=== PATIENT | female | born 1960 | race Caucasian/White ===

== ENCOUNTER 2020-12-14 08:48 | Outpatient (CLI) | payer BC, SELFPAY ==
--- NOTE | ~2020-12-14 | MM_ITS ---
EXAMINATION: MM screening bebeto BI w leandro HISTORY: Screening TECHNIQUE: Craniocaudal and mediolateral oblique 3-D tomosynthesis images were obtained and synthetic 2-D images were generated. CAD analysis was submitted and interpreted. COMPARISON: Comparison to multiple prior studies sequentially, with oldest reviewed study dated 11/2013. BREAST PARENCHYMAL COMPOSITION: There are scattered areas of fibroglandular density. FINDINGS: There is no evidence of suspicious mass, calcification, or architectural distortion to sugg est malignancy in either breast. There has been no suspicious interval change. IMPRESSION: 1. No mammographic evidence of malignancy. 2. Recommend routine screening mammography in one year. BI-RADS Category 1: Negative Reviewed, dictated and finalized at location A. EPSY PHYSICIAN
== END 2020-12-14 08:49 | disposition home or self-care (01) ==
LOC: ANHIMG 08:54
PROVIDERS: PCP Nurse Practitioner Adult Health; Visit Provider Obstetrics & Gynecology Gynecology
DX: Z12.31 Encounter for screening mammogram for malignant neoplasm of breast (principal)
CPT/HCPCS: 77063; 77067

== ENCOUNTER → 2021-11-03 02:50 | Outpatient (CLI) | payer BC, SELFPAY ==
[2021-11-04 14:36] LABS: SARS-CoV-2 RNA PCR Negative
== END ==
PROVIDERS: PCP Nurse Practitioner Adult Health; Visit Provider Nurse Practitioner Adult Health
DX: R05.9 Cough, unspecified (principal); Z20.822 Contact with and (suspected) exposure to COVID-19
CPT/HCPCS: C9803; U0003; U0005

== ENCOUNTER 2022-07-25 08:14 | Outpatient (CLI) | payer BC, SELFPAY ==
--- NOTE | ~2022-07-25 | DEXA_ITS ---
Bone Density Report Name: BERTA HARGROVE Age: 61 Sex: Female Ethnicity: White Date of : 1960 Indication: postmenopausal; screening for osteoporosis; Referring Provider: REYNA BUSTOS Study: Bone densitometry was performed. Exam Date: July 25, 2022 Accession number: [id number] Bone Density: Region BMD T-score Z-score Classification AP Spine(L1-L4) 1.161 1.0 2.6 Normal Femoral Neck (Left) 0.786 -0.6 0.8 Normal Total Hip (Left) 0.955 0.1 1.1 Normal Femoral Neck (Right) 0.810 -0.4 1.0 Normal Total Hip (Right) 1.031 0.7 1.8 Normal Total Hip Mean 0.993 0.4 1.5 Normal World Health Organization criteria for BMD impression classify patients as: Normal (T-score at or above -1.0), Osteopenia (T-score between -1.0 and -2.5), or Osteoporosis (T-score at or below -2.5). 10-year Fracture Risk: FRAX not reported because: All T-scores for Spine Total, Hip Total, Femoral Neck at or above -1.0 Previous Exams: Region Exam Age BMD T-score BMD Change BMD Change Date g/cm2 vs Baseline vs Previous AP Spine (L1-L4) 07/25/2022 61 1.161 1.0 0.048 (4.3%)* 0.007 (0.6%) 03/14/2019 58 1.154 1.0 0.041 (3.7%)* 0.041 (3.7%)* 04/22/2015 54 1.113 0.6 Total Hip(Left) 07/25/2022 61 0.955 0.1 -0.016 (-1.6%) -0.018 (-1.9%) 03/14/2019 58 0.973 0.3 0.002 (0.3%) 0.002 (0.3%) 04/22/2015 54 0.970 0.2 Total Hip(Right) 07/25/2022 61 1.031 0.7 0.022 (2.1%) -0.001 (-0.1%) 03/14/2019 58 1.031 0.7 0.023 (2.2%) 0.023 (2.2%) 04/22/2015 54 1.009 0.5 *Denotes significance at 95% confidence level, LSC for AP Spine = 0.022 g/cm2, LSC for Total Hip = 0.027 g/cm2 Clinical Information Provided by Patient: Has used the following medications: Vitamin D, Calcium Patient maximum height was 63 Menopause Age: 53 No regular weight bearing exercise Drinks caffeinated beverages Onset of menses at age 12 Number of children 3 Impression: The patient has normal bone mass. No significant bone loss was observed. Discussion: BONE DENSITY IS ABOVE THE MINIMUM DESIRABLE LEVEL AT ALL SKELETAL SITES TESTED. This patient?s bone mineral density is above the minimum desirable level (T-score -1.0 or better) at all sites measured. The patient should follow a healthful lifestyle (good nutrition with adequate calcium and vitamin D, and appropriate weight-bearing exercise). Follow-Up: Consider repeating th
--- NOTE | ~2022-07-25 | MM_ITS ---
EXAMINATION: MM screening bebeto BI w leandro HISTORY: Screening mammogram TECHNIQUE: Craniocaudal and mediolateral oblique 3-D tomosynthesis images were obtained and synthetic 2-D images were generated. CAD analysis was submitted and interpreted. COMPARISON: December 14, 2020, March 14, 2019, November 23, 2017 bilateral screening mammogram examinati ons BREAST PARENCHYMAL COMPOSITION: There are scattered areas of fibroglandular density. FINDINGS: There is no evidence of suspicious mass, calcification, or architectural distortion to sugg est malignancy in either breast. There has been no suspicious interval change. IMPRESSION: 1. No mammographic evidence of malignancy. 2. Recommend routine screening mammography in one year. BI-RADS Category 1: Negative Reviewed, dictated and finalized at location A.
== END 2022-07-25 08:15 | disposition home or self-care (01) ==
LOC: ANHIMG 08:15
PROVIDERS: PCP Nurse Practitioner Adult Health; Visit Provider Obstetrics & Gynecology Gynecology
DX: Z12.31 Encounter for screening mammogram for malignant neoplasm of breast (principal); Z78.0 Asymptomatic menopausal state
CPT/HCPCS: 77063; 77067; 77080

== ENCOUNTER → 2023-05-29 10:07 | Outpatient (CLI) | payer BC, SELFPAY ==
--- NOTE | ~2023-05-29 | US_ITS ---
Pelvic ultrasound. Clinical History: Postmenopausal bleeding Technique: Realtime transabdominal and transvaginal scanning of the pelvis was performed. Color flow Doppler and Doppler spectral analysis were performed. Findings: The uterus is anteverted. The endometrial stripe is heterogeneous, and has a thickness of 15 mm. No focal mass is identified. Neither ovary seen. No other adnexal mass seen. There is no evidence of free fluid in the cul de sac. Impression: Thickened, heterogeneous endometrial stripe. Diagnostic considerations include endometrial hyperplasi a versus endometrial neoplasm. Further evaluation, including probable endometrial biopsy, recommended . Reviewed, dictated and finalized at location M. Impression: Thickened, heterogeneous endometrial stripe. Diagnostic considerations include endometrial hyperplasia versus endometrial neoplasm. Further evaluation, includ ing probable endometrial biopsy, recommended.
== END ==
PROVIDERS: PCP Obstetrics & Gynecology Gynecology; Visit Provider Obstetrics & Gynecology Gynecology
DX: N95.0 Postmenopausal bleeding (principal)
CPT/HCPCS: 76830

== ENCOUNTER 2023-07-24 02:11 | Day surgery (SDC) | payer BC, SELFPAY ==
[2023-07-17 11:32] VITALS: BMI 34.5
--- NOTE | 2023-07-17 11:39 | PC.NURSE ---
Report to the Outpatient Waiting Room, entrance under the green pavilion located off [facility], at time 0815 on date 07/24/23. Planned Procedure Time: 1015. Time changes happen often and if your time is changed the preop area will call you the afternoon before. - You and your visitor will be asked to self-screen and do not enter if you have any COVID symptoms. - A mask is optional within the hospital at this time. Patients may have clear liquids (water, carbonated beverages, clear teas, apple juice) until 3 hours prior to surgery with a maximum of 20 ounces. - No food from midnight until time of surgery Take the following medications with a SIP of water the morning of surgery: BUSPIRONE, LORAZEPAM DO NOT STOP ANY OF YOUR OTHER PRESCRIPTION MEDICATIONS PRIOR TO SURGERY ?EXCEPT THE FOLLOWING Medications to discontinue per physician: VITAMINS/SUPPLEMENTS Date to take last dose: 07/20/23 Please no make-up, nail wolof, hairspray, perfume, deodorant, or body powder the day of surgery. No jewelry (including any body piercings) or valuables the day of surgery, leave them at home. Please take a shower or bath the night before, or the morning of, surgery with an antibacterial soap. Wear comfortable, loose fitting clothing. - Jewelry must be removed prior to entering the operating room. Rings and piercings that are not removed may be cut off. - The hospital will not accept responsibility for valuables. - Please leave all valuables, including medications, at home the day of surgery. If you are going home after surgery, a licensed cab driver must drive you home. - NO public transportation without another adult if you receive anesthesia. - We recommend that an adult stay with you for 24 hours following discharge. - We also recommend that you do not drive, make important decision, drink alcoholic beverages, or take any drugs that were not prescribed by your health care provider for at least 24 hours after your discharge time. Follow any additional instructions given to you from your surgeon. If you or anyone in your household have experienced Covid symptoms in the past week, please notify your surgeon or the nurse liaison at the phone number below for possible testing. Telephone instructions given to PT - BERTA HARGROVE and asked if any additional questions and then verbalized understanding. Patient advised to call surgeon office or pre surgery nurse liaison [phone] if any additional questions.
--- NOTE | 2023-07-24 07:32 | WPDHPUPDATE1 ---
History and Physical Update Update Date/Time: 07/24/23 07:32 History and Physical has been reviewed, including an updated exam of the patient. There are NO changes in the patient's condition. Risks, benefits, and alternatives have been discussed and questions answered. Patient agrees to proceed with procedure.
--- NOTE | 2023-07-24 07:32 | PM.HPGS ---
History of Present Illness History of Present Illness Consent: Risks, benefits, and alternatives have been discussed and questions answered. Patient agrees to proceed with procedure. Chief complaint: postmenopausal bleeding Narrative: Jaci Garcia is a 62 year old female with an episode of vaginal bleeding. On exam she had 2 polyps at the cervix which were removed and found to be benign. Was recommended to also perform an ultrasound to verify the endometrium was thin. Ultrasound revealed the endometrium to be thickened at 15mm. It was recommended then to proceed with D&C hysteroscopy. Risks of infection, bleeding, perforation, and possible pathology are reviewed. Patient voices understanding and agrees to proceed. Review of Systems Review of Systems: not repeated day of surgery; patient states no changes in status PMFSH Past Medical History Medical History (Updated 07/24/23 @ 07:36 by Flower Caldera MD) Anxiety Hypercholesterolemia (normal spontaneous vaginal delivery) X1 Also history forceps assisted vaginal delivery x1 Surgical History Surgical History (Updated 07/24/23 @ 07:35 by Flower Caldera MD) History of X1 History of D&C 1982 for spontaneous Social History Social History Smoking status: Never smoker Alcohol intake: current Alcohol use details: VERY RARE Substance use: never Substance use type: does not use Living arrangements: with family Spiritual care concerns: No Meds Home Medications and Allergies Home Medications Medication Instructions Recorded Confirmed Type buspirone 15 mg tablet 15 mg PO BID 07/17/23 07/17/23 History calcium carbonate 600 mg calcium 600 mg PO DAILY 07/17/23 07/17/23 History (1,500 mg) tablet (Calcium) ergocalciferol (vitamin D2) 1,250 1,250 mcg PO WEEKLY 07/17/23 07/17/23 History mcg (50,000 unit) capsule (Vitamin D2) lansoprazole 30 mg capsule,delayed 30 mg PO DAILY 07/17/23 07/17/23 History release loratadine 10 mg tablet (Claritin) 10 mg PO DAILY 07/17/23 07/17/23 History lorazepam 0.5 mg tablet 0.5 mg PO TID PRN Anxiety 07/17/23 07/17/23 History lutein extract 15 mg-zeaxanthin 1 cap PO QMWFSA 07/17/23 07/17/23 History extract 0.7 mg capsule multivitamin 1 tablet PO DAILY 07/17/23 07/17/23 History rosuvastatin 20 mg tablet 20 mg PO DAILY 07/17/23 07/17/23 History Allergies Allergy/AdvReac Type Severity Reaction Status Date / Time Penicillins Allergy Mild RASH Unverified 07/17/23 11:32 Exam Const: General: healthy appearing and alert Orientation/consciousness: patient oriented x3 Resp: Effort & Inspection: normal respiratory effort GI: GI Palp: Yes Soft to palpation, No Tenderness to palpation present (GI) and No Palpable mass present : External Female Exam: normal external appearance Speculum Exam - Vagina: normal appearance of the vagina and normal vaginal discharge Speculum Exam - Cervix: normal appearance of the cervix Bimanual exam- vagina & uterus: uterine size normal and consistency normal Bimanual Exam- Adnexa, other: normal adnexae and No adnexal tenderness Neuro: General: patient oriented x3 Assessment and Plan Assessment and plan (1) Post-menopausal bleeding: Code(s): N95.0 - Postmenopausal bleeding Status: Acute Assessment and Plan: Plan to proceed with D&C hysteroscopy
[2023-07-24 08:30] VITALS: BP 146/74; PULSE 76; RESP 16; TEMP 36.6; O2SAT 98
[2023-07-24] MEDS: LACTATED RINGERS 1,000 ML 30 ML IV CONT (08:56)
[2023-07-24] MEDS: ACETAMINOPHEN 500 MG TABLET 1000 MG PO (08:57)
--- NOTE | 2023-07-24 09:11 | WPDANESEPPF ---
Anes - Initial Pre Proc Eval Procedure: Operation Date: 07/24/23 10:15 Proposed Procedures p Hysteroscopy Dilation and Curettage - Flower Caldera MD Date/Time: 07/24/23 09:11 Surgeon: Flower Caldera MD Pre Op Diagnosis: postmenopausal bleeding Patient Data Age: 62 Gender: F Height: 1.6 m Weight: 89.7 kg Last Vital Signs Temp 36.6 C 07/24/23 08:30 Pulse 76 07/24/23 08:30 Resp 16 07/24/23 08:30 BP 146/74 H 07/24/23 08:30 Pulse Ox 98 07/24/23 08:30 O2 Del Method Room Air 07/24/23 08:30 Allergies Allergy/AdvReac Type Severity Reaction Status Date / Time Penicillins Allergy Mild RASH Unverified 07/24/23 09:05 Home Medications Medication Instructions Recorded Confirmed Type buspirone 15 mg tablet 15 mg PO BID 07/17/23 07/24/23 History calcium carbonate 600 mg calcium 600 mg PO DAILY 07/17/23 07/24/23 History (1,500 mg) tablet (Calcium) ergocalciferol (vitamin D2) 1,250 1,250 mcg PO WEEKLY 07/17/23 07/24/23 History mcg (50,000 unit) capsule (Vitamin D2) lansoprazole 30 mg capsule,delayed 30 mg PO DAILY 07/17/23 07/24/23 History release loratadine 10 mg tablet (Claritin) 10 mg PO DAILY 07/17/23 07/24/23 History lorazepam 0.5 mg tablet 0.5 mg PO TID PRN Anxiety 07/17/23 07/24/23 History lutein extract 15 mg-zeaxanthin 1 cap PO QMWFSA 07/17/23 07/24/23 History extract 0.7 mg capsule multivitamin 1 tablet PO DAILY 07/17/23 07/24/23 History rosuvastatin 20 mg tablet 20 mg PO DAILY 07/17/23 07/24/23 History lansoprazole 30 mg capsule,delayed 30 mg PO DAILY 07/24/23 07/24/23 History release Patient hx anesthesia problems: none Family hx anesthesia problems: none Results Review: All pre-operative results and documents have been reviewed as part of the pre-operative evaluation. [facility] Past Medical History Medical History (Updated 07/24/23 @ 09:11 by Vinh Sosa MD) Anxiety Hypercholesterolemia (normal spontaneous vaginal delivery) X1 Also history forceps assisted vaginal delivery x1 Obesity Snoring Surgical History Surgical History History of X1 History of D&C 1982 for spontaneous Social History Social History Smoking status: Never smoker Alcohol intake: current Alcohol use details: VERY RARE Substance use: never Substance use type: does not use Living arrangements: with family Spiritual care concerns: No Anes - Eval Final PreProcedure Day of Procedure 07/24/23 09:11 Patient weight: obese Heart: regular rate and rhythm Lungs: clear to auscultation Airway: Mallampati scale class III and special considerations poor opening Neurological: alert and oriented Last oral intake: >/= 8 hours ASA classification: III Emergent: no Anesthetic plan: proceed Anesthesia type and monitoring: general GIVS and standard monitoring Results Review: All pre-operative results and documents have been reviewed as part of the pre-operative evaluation. Informed Consent: The patient's anesthetic plan and its attendant risks and benefits were discussed with the patient/family/POA. Questions were solicited and answers provided to the satisfaction of the patient/family/POA.
--- NOTE | 2023-07-24 11:48 | W.PM.PROC2 ---
Procedure Note - Detailed Date of Procedure 07/24/23 Pre-op Diagnosis postmenopausal bleeding Post-op Diagnosis Same Procedure Performed D&C hysteroscopy polypectomy Surgeon Flower Caldera MD Anesthesia MAC Findings Uterus sounds to 8cm and there are 2 large polyps filling the entire cavity. Endometrium appears grossly atrophic. Description of Procedure The patient is taken to the operating room and placed under anesthesia in the dorsal lithotomy position. She was prepped and draped in the usual sterile fashion. [place] speculum was placed in the vagina and the cervix grasped on the anterior lip with a tenaculum. The uterus is sounded to 8cm and the diagnostic hysteroscope placed. Due to the large polyps, the medium Aveeta resection device is placed. Under direct visualization the polyps were removed in their entirety. The hysteroscope was removed and the sharp curette used to curette the endometrium until a good uterine cry was noted in all areas. Minimal material was obtained with curettage consistent with the atrophic appearance. All instruments were then removed. The patient is awakened from anesthesia and taken to recovery in stable condition. Sponge, needle, and instrument counts are correct per the OR staff Estimated Blood Loss 5 Drains No Packing No Pathology Yes (Endometrial shavings and curettings) Complications No immediate complications Condition Stable Disposition PACU
[2023-07-24 11:50] VITALS: BP 118/61; PULSE 90; RESP 16; O2SAT 96
--- NOTE | 2023-07-24 11:59 | SUR.PREOP ---
0930 PT INFORMED OF SURGERY TIME DELAY, DENIES NEEDS 1100 PT UPDATED ON SURGERY TIME DELAY, DENIES NEEDS
[2023-07-24 12:20] VITALS: BP 119/77; PULSE 78
[2023-07-24 12:50] VITALS: BP 115/64; PULSE 70
== END 2023-07-24 13:15 | disposition home or self-care (01) ==
PROVIDERS: PCP Family Medicine; Visit Provider Obstetrics & Gynecology Gynecology
PROC: 0U5B8ZZ Destruction of Endometrium, Via Natural or Artificial Opening Endoscopic (ICD-10-PCS; CPT 58563; principal; 2023-07-24 10:15)
DX: N95.0 Postmenopausal bleeding (principal); N84.0 Polyp of corpus uteri; E78.00 Pure hypercholesterolemia, unspecified; F41.9 Anxiety disorder, unspecified; E66.9 Obesity, unspecified; Z68.35 Body mass index [BMI] 35.0-35.9, adult
CPT/HCPCS: 58558; 88305; A9270; J2250; J2405; J2704; J3010; J7120

== ENCOUNTER 2024-01-16 07:57 | Outpatient (CLI) | payer BC, SELFPAY ==
--- NOTE | ~2024-01-16 | MM_ITS ---
EXAMINATION: MM screening bebeto BI w leandro HISTORY: Screening TECHNIQUE: Craniocaudal and mediolateral oblique 3-D tomosynthesis images were obtained and synthetic 2-D images were generated. CAD analysis was submitted and interpreted. COMPARISON: Comparison to multiple prior studies sequentially, with oldest reviewed study dated 07/31. BREAST PARENCHYMAL COMPOSITION: Not dense: There are scattered areas of fibroglandular density. FINDINGS: Developing focal asymmetries in the right breast, best seen on MLO view. The left breast is stable without evidence for malignancy. IMPRESSION: 1. Developing right breast asymmetries. 2. Additional mammographic views and possible breast ultrasound are recommended. BI-RADS Category 0: Incomplete: Needs additional imaging evaluation. Reviewed, dictated and finalized at location A. IMPRESSION: 1. Developing right breast asymmetries. 2. Additional mammographic views and possible breast ultrasound are recommended . BI-RADS Category 0: Incomplete: Needs additional imaging evaluation.
== END 2024-01-16 07:58 | disposition home or self-care (01) ==
PROVIDERS: PCP Family Medicine; Visit Provider Obstetrics & Gynecology Gynecology
DX: Z12.31 Encounter for screening mammogram for malignant neoplasm of breast (principal); R92.8 Other abnormal and inconclusive findings on diagnostic imaging of breast
CPT/HCPCS: 77063; 77067

== ENCOUNTER 2024-02-07 13:06 | Outpatient (CLI) | payer BC, SELFPAY ==
--- NOTE | ~2024-02-07 | MMUS_ITS ---
EXAMINATION: MM diagnostic bebeto RT w leandro, US breast RT complete HISTORY: Developing right breast asymmetries reported on 01/16/2024 screening mammogram TECHNIQUE: Additional 3-D tomosynthesis images of the right breast were performed and synthetic 2-D i mages were generated. Rolled medial craniocaudal and rolled lateral craniocaudal views. CAD analysis was submitted and interpreted. High resolution complete right breast ultrasound examination coronal 4 quadrants and subareolar area was performed. COMPARISON: 01/16/2024 bilateral screening mammogram No imaging studies prior to 01/16/2024 hour available from PACS at this time. FINDINGS: MAMMOGRAPHIC FINDINGS: Mildly nodular fibroglandular stroma of the right breast is noted. There is an approximately 4 mm circumscribed opacity in the lower central right breast at mid to post erior depth. (ML Tomosynthesis image 34/81). No suspicious mass of the right breast or architectural distortion is evident otherwise. ULTRASOUND: 7:00 5 cm from nipple: Parallel circumscribed approximately 3.2 x 4.5 x 5.4 mm lesion is noted, witho ut internal vascularity or posterior shadowing. 8:00 7 cm from nipple: Oval circumscribed 2.4 x 1.8 x 2.7 mm sonolucency, likely a small cyst IMPRESSION: 1. Probable benign findings 2. 6 month diagnostic right mammogram and limited right breast ultrasound follow-up are recommended BI-RADS category 3, probably benign findings. Reviewed, dictated and finalized at location A. IMPRESSION: 1. Probable benign findings 2. 6 month diagnostic right mammogram and limited right breast ultrasound follo w-up are recommended BI-RADS category 3, probably benign findings.
== END 2024-02-07 13:07 | disposition home or self-care (01) ==
LOC: ANHIMG 13:11
PROVIDERS: PCP Family Medicine; Visit Provider Obstetrics & Gynecology Gynecology
DX: R92.8 Other abnormal and inconclusive findings on diagnostic imaging of breast (principal)
CPT/HCPCS: 76641; 77061; 77065; G0279

== ENCOUNTER 2024-06-26 08:32 | Outpatient (CLI) | payer BC, SELFPAY ==
--- NOTE | ~2024-06-26 | US_ITS ---
EXAMINATION: US transvaginal INDICATION: Postmenopausal bleeding Comparison:05/29/2023 TECHNIQUE: Multiple endovaginal sonographic images of the pelvis performed. FINDINGS: The uterus measures 7.2 x 3 x 4.5 cm. The endometrial complex measures 5 mm. The ovaries are not visualized. There is no free fluid in the pelvis. There are no abnormal masses seen on either side. IMPRESSION: 1. Unremarkable pelvic ultrasound. Reviewed, dictated and finalized at location B.
== END 2024-06-26 08:33 ==
LOC: MICIMG 08:34
PROVIDERS: PCP Obstetrics & Gynecology Gynecology; Visit Provider Obstetrics & Gynecology Gynecology
DX: N95.0 Postmenopausal bleeding (principal)
CPT/HCPCS: 76830

== ENCOUNTER 2024-08-12 10:19 | Outpatient (CLI) | payer BC, SELFPAY ==
--- NOTE | ~2024-08-12 | MMUS_ITS ---
EXAMINATION: US breast RT limited, MM diagnostic bebeto RT w leandro HISTORY: Follow-up right breast mass TECHNIQUE: Additional 3-D tomosynthesis images of the right breast were performed and synthetic 2-D i mages were generated. CAD analysis was submitted and interpreted. High resolution Limited right breas t ultrasound was performed. COMPARISON: Comparison to multiple prior studies sequentially, with oldest reviewed study dated 03/14. BREAST PARENCHYMAL COMPOSITION: Not dense: There are scattered areas of fibroglandular density. FINDINGS: MAMMOGRAPHIC FINDINGS: There are no suspicious masses, calcifications or architectural distortion to suggest malignancy. ULTRASOUND: Limited right breast ultrasound: There is a stable 6 mm oval hypoechoic mass with echogenic hilum bes t visualized on video sweep images, most compatible with benign intramammary lymph node. IMPRESSION: 1. No evidence for malignancy in the right breast. Benign finding. 2. Routine yearly screening mammogram and regular clinical breast examination are recommended. BI-RADS Category 2: Benign finding(s). Reviewed, dictated and finalized at location B. IMPRESSION: 1. No evidence for malignancy in the right breast. Benign finding. 2. Routine yearly screening mammogram and regular clinical breast examination a re recommended. BI-RADS Category 2: Benign finding(s).
== END 2024-08-12 10:20 | disposition home or self-care (01) ==
LOC: ANHIMG 10:21
PROVIDERS: PCP Obstetrics & Gynecology Gynecology; Visit Provider Obstetrics & Gynecology Gynecology
DX: R92.8 Other abnormal and inconclusive findings on diagnostic imaging of breast (principal)
CPT/HCPCS: 76642; 77061; 77065; G0279

== ENCOUNTER 2025-09-16 02:08 | Day surgery (SDC) | payer BC, SELFPAY ==
[2025-09-01 14:01] VITALS: BMI 34.5
--- OUTSIDE RECORDS SUMMARY | 2025-09-16 03:20 | XMS_ITS | Clinical Summary ---
Author Organization [facility] [employer] Address [address] [address] Care Team Providers Care Filer And Sander Name Role Phone Unavailable Primary Care Provider Unavailabl e Source Comments [facility],non-owned Affiliates and Associated Physician Practices is amultiple site organization consisting of ambulatory clinics and hospital sitesin [place], [place], [place]. This disclosure is being madepursuant to the Care Everywhere program and may not contain all information available regarding this patient. Last updated 18.[facility] Allergies Active Allergy Reactions Criticality Noted Date Comments Penicillins Unknown 09/09/2020 Immunizations Immunization Administration Dates Next Due INFLUENZA VACCINE, QUADR. (F LUZONE; FLULAVAL; FLUARIX; AFLURIA QUADRIVALENT; 6MO+), 0.5 ML (IIV4) 09/09/2020 Social History Tobacco Use Types Packs/Day Years Used Date Smoking Tobacco: Never Assessed Comments Unknown Sex and Gender Information Value Date Recorded Sex Assigned at Not on file Legal Sex Female 11:27 AM [employer] Gender Identity Not on file Sexual Orientation Not on file Plan of Treatment Health Maintenance Due Date Last Done Comments COLOGUARD (AGES 45-75) - COL ON CA SCREENING 1960 COLON MONITORING 1960 COLONOSCOPY - COLON CA SCREENING 1960 CT COLONOGRAPHY - COLON CA SCREENING 1960 Colorectal Cancer Screening 1960 FIT - COLON CA SCREENING 1960 FLEX SIG - COLON CA SCREENING 1960 LIPID TESTING 1960 MAMMOGRAM 1960 HIV SCREENING 1975 HEPATITIS C SCREENING 11/26/1978 DTAP/TDAP/TD VACCINES (1 - Tdap) 1979 Cervical Cancer Screening 1981 PAP SMEAR 1981 PAP with HPV 1990 PNEUMOCOCCAL VACCINE 50+ (1 of 1 - PCV) 2010 ZOSTER VACCINE (1 of 2) 2010 DEPRESSION SCREENING 10/30/2024 COVID-19 VACCINE (1 - 2024-2 6 season) 2025 INFLUENZA VACCINE (#1) 2025 09/09/2020 Respiratory Syncytial Virus (RSV) Vaccine Pt: or over 60 yrs (1 - 1-dose 75+ series) 2035 HEPATITIS B VACCINE Aged Out No longe r eligible based on patient's age to complete this topic HIB VACCINE Aged Out No longer eligi ble based on patient's age to complete this topic HPV VACCINE Aged Out No longer eligi ble based on patient's age to complete this topic MENINGOCOCCAL (Group B) VACC INE SHARED DECISION-MAKING Aged Out No longer eligibl e based on patient's age to complete this topic MENINGOCOCCAL GROUPS A/C/Y/W VACCINE Aged Out No longer eligible b ased on patient's age to complete this topic Insurance [employer]
--- OUTSIDE RECORDS SUMMARY | 2025-09-16 03:20 | XMS_ITS | Clinical Summary ---
Author Organization [address] Address [address] [place] [id number] Care Team Providers Care Air Chipper Name Role Phone Emely Castellanos MD Primary Care Provider [phone] Allergies Active Allergy Reactions Criticality Noted Date Comments Penicillins Rash Medium 11/23/2023 Medications busPIRone (BUSPAR) 15 mg tablet Take 1 tablet (15 mg total) by mouth 2 (two) times a day 3 Active progesterone (PROMETRIUM) 100 mg capsule 4 Active lansoprazole (PREVACID) 30 mg capsule 3 Active rosuvastatin (CRESTOR) 20 mg tablet Take 1 tablet (20 mg total) by mouth daily 3 Active triamcinolone (KENALOG) 0.1 % ointment APPLY TOPICALLY EVERY WEEK TO THE AFFECTED AREA 3 Active Active Problems No known active problems Social History Tobacco Use Types Packs/Day Years Used Date Smoking Tobacco: Never Assessed Personal Safety Answer Date Recorded Getting School Help Needed Not on file 11/23 Comments Unknown Sex and Gender Information Value Date Recorded Sex Assigned at Not on file 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 Gender Identity Not on file Sexual Orientation Not on file Last Filed Vital Signs Vital Sign Reading Time Taken Comments Blood Pressure 124/78 11/23/2023 11:03 AM HEALTH AND FITNESS PROFESSOR Pulse 105 11/23/2023 11:03 AM HEALTH AND FITNESS PROFESSOR Temperature 36.9 C (98.4 F) 11/23/2023 11:03 AM HEALTH AND FITNESS PROFESSOR Respiratory Rate 24 11/23/2023 11:03 AM HEALTH AND FITNESS PROFESSOR Oxygen Saturation 98% 11/23/2023 11:03 AM HEALTH AND FITNESS PROFESSOR Inhaled Oxygen Concentration - - Weight 89.8 kg (198 lb) 11/23/2023 11:03 AM HEALTH AND FITNESS PROFESSOR Height 160 cm (5' 3) 11/23/2023 11:03 AM HEALTH AND FITNESS PROFESSOR Body Mass Index 35.07 11/23/2023 11:03 AM HEALTH AND FITNESS PROFESSOR Plan of Treatment Health Maintenance Due Date Last Done Comments Breast Cancer Screening-Mammogram 1960 Cervical Cancer Screening 1960 Colon Cancer Screening-Colonoscopy 1960 Depression Screening 1960 Hepatitis C Screening 1960 Hepatitis B Screening 1978 Regular Well Visit/Exam 18-64 1978 Zoster Vaccine (1 of 2) 2010 DTaP/Tdap/Td Vaccine (2 - Td or Tdap) 09/23/2023 09/23/2013 Covid-19 Vaccine ( season) 2025 08/18/2022, 10/07/2021, 01/19/2021, Additional history exists Influenza Vaccine (#1) 2025 , 08/18/2022, 10/07/2021, Additional history exists Pneumococcal vaccine <65 Aged Out No longer eligible based on patient's age to complete this topic Insurance [employer] ACCESS CHO[employer] Member Subscriber Plan / Payer (Ef fective 2023-Present) Name:Jaci Garcia Relation to Subscriber:Spouse Name:DEBBI GARCIA Date of :1959 (Home) Address: [address] [place] [address] Payer ID:[id number] (NAIC) Type:BC [place] Address: [facility] [id number] [address] [place] [id number] Care Teams Air Chipper Relationship Specialty Start Date End Date Emely Castellanos MD [facility] [place] [address] PCP - General Family Medicine 11/23/23
[2025-09-16 06:39] VITALS: BP 136/84; PULSE 97; RESP 20; TEMP 36.6; O2SAT 98
--- NOTE | 2025-09-16 06:46 | WPDANESEPPF ---
Anes - Initial Pre Proc Eval Procedure: Operation Date: 09/16/25 07:30 Proposed Procedures p Screening Colonoscopy - Francisco Shepard MD Date/Time: 09/16/25 06:46 Surgeon: Francisco Shepard MD Pre Op Diagnosis: Encounter for screening for malignant neoplasm of Patient Data Age: 64 Gender: F Height: 1.6 m Weight: 87.3 kg Last Vital Signs Temp 97.8 F 09/16/25 06:39 Pulse 97 09/16/25 06:39 Resp 20 09/16/25 06:39 BP 136/84 09/16/25 06:39 Pulse Ox 98 09/16/25 06:39 O2 Del Method Room Air 09/16/25 06:39 Allergies Allergy/AdvReac Type Severity Reaction Status Date / Time Penicillins Allergy Mild RASH Verified 09/16/25 06:36 Home Medications ?Medication ?Instructions ?Recorded ?Confirmed ?Type buspirone 15 mg tablet 15 mg PO BID 07/17/23 09/16/25 History calcium carbonate (Calcium 600) 600 mg PO DAILY 07/17/23 09/16/25 History ergocalciferol (vitamin D2) 1,250 1,250 mcg PO WEEKLY 07/17/23 09/16/25 History mcg (50,000 unit) capsule (Vitamin D2) lansoprazole 30 mg capsule,delayed 30 mg PO DAILY 07/17/23 09/16/25 History release loratadine 10 mg tablet (Claritin) 10 mg PO DAILY 07/17/23 09/16/25 History lorazepam 0.5 mg tablet 0.5 mg PO TID PRN Anxiety 07/17/23 09/01/25 History lutein 15 mg-zeaxanthin extract 1 cap PO QMWFSA 07/17/23 09/16/25 History 0.7 mg capsule multivitamin 1 tablet PO DAILY 07/17/23 09/16/25 History rosuvastatin 20 mg tablet 20 mg PO DAILY 07/17/23 09/16/25 History lansoprazole 30 mg capsule,delayed 30 mg PO DAILY 07/24/23 09/16/25 History release fenofibrate micronized 134 mg 134 mg PO DAILY 09/01/25 09/16/25 History capsule progesterone micronized 100 mg 100 mg PO DAILY 11/03/25 11/18/25 History capsule Patient hx anesthesia problems: none Family hx anesthesia problems: none Results Review: All pre-operative results and documents have been reviewed as part of the pre-operative evaluation. [facility] Past Medical History Medical History Obesity Snoring Hypercholesterolemia Anxiety (normal spontaneous vaginal delivery) X1 Also history forceps assisted vaginal delivery x1 Surgical History Surgical History History of D&C 1982 for spontaneous History of X1 Social History Social History Smoking status: Never smoker Alcohol intake: never Alcohol use details: VERY RARE Substance use: never Substance use type: does not use Living arrangements: with family Spiritual care concerns: No Anes - Eval Final PreProcedure Day of Procedure 09/16/25 06:46 Patient weight: obese Lungs: normal air movement Airway: Mallampati scale class II Neurological: alert and oriented Last oral intake: >/= 8 hours ASA classification: II Emergent: no Anesthetic plan: proceed Anesthesia type and monitoring: general GIVS and standard monitoring Results Review: All pre-operative results and documents have been reviewed as part of the pre-operative evaluation. Hyperlipidemia, BMI 34, pt active w 1-2 fos, no cp but mild dyspnea w 2 flights. Informed Consent: The patient's anesthetic plan and its attendant risks and benefits were discussed with the patient/family/POA. Questions were solicited and answers provided to the satisfaction of the patient/family/POA.
[2025-09-16] MEDS: LACTATED RINGERS 1,000 ML 150 ML IV CONT (06:55)
--- NOTE | 2025-09-16 07:31 | PM.HPGS ---
History of Present Illness History of Present Illness Consent: Risks, benefits, and alternatives have been discussed and questions answered. Patient agrees to proceed with procedure. Chief complaint: Encounter for screening for malignant neoplasm of Narrative: Jaci Garcia is a 64 year old female with history of colon polyp Review of Systems Review of Systems: All systems reviewed & are unremarkable except as noted in HPI and below PMFSH Past Medical History Medical History (Updated 09/16/25 @ 07:32 by Francisco Shepard MD) Colon polyp Obesity Snoring Hypercholesterolemia Anxiety (normal spontaneous vaginal delivery) X1 Also history forceps assisted vaginal delivery x1 Surgical History Surgical History History of D&C 1982 for spontaneous History of X1 Social History Social History Smoking status: Never smoker Alcohol intake: never Alcohol use details: VERY RARE Substance use: never Substance use type: does not use Living arrangements: with family Spiritual care concerns: No Meds Home Medications and Allergies Home Medications ?Medication ?Instructions ?Recorded ?Confirmed ?Type buspirone 15 mg tablet 15 mg PO BID 07/17/23 09/16/25 History calcium carbonate (Calcium 600) 600 mg PO DAILY 07/17/23 09/16/25 History ergocalciferol (vitamin D2) 1,250 1,250 mcg PO WEEKLY 07/17/23 09/16/25 History mcg (50,000 unit) capsule (Vitamin D2) lansoprazole 30 mg capsule,delayed 30 mg PO DAILY 07/17/23 09/16/25 History release loratadine 10 mg tablet (Claritin) 10 mg PO DAILY 07/17/23 09/16/25 History lorazepam 0.5 mg tablet 0.5 mg PO TID PRN Anxiety 07/17/23 09/01/25 History lutein 15 mg-zeaxanthin extract 1 cap PO QMWFSA 07/17/23 09/16/25 History 0.7 mg capsule multivitamin 1 tablet PO DAILY 07/17/23 09/16/25 History rosuvastatin 20 mg tablet 20 mg PO DAILY 07/17/23 09/16/25 History lansoprazole 30 mg capsule,delayed 30 mg PO DAILY 07/24/23 09/16/25 History release fenofibrate micronized 134 mg 134 mg PO DAILY 09/01/25 09/16/25 History capsule progesterone micronized 100 mg 100 mg PO DAILY 09/01/25 09/16/25 History capsule Allergies Allergy/AdvReac Type Severity Reaction Status Date / Time Penicillins Allergy Mild RASH Verified 09/16/25 06:36 Vital Signs Vital Signs - 24 hr 09/16/25 06:39 Temperature 97.8 F Pulse Rate 97 Respiratory Rate 20 Blood Pressure 136/84 Pulse Oximetry 98 Oxygen Delivery Room Air Exam Const: General: comfortable and no acute distress HENMT: Face/Nose/Sinus: Normal nares present Eyes: General: appearance normal, both eyes and all related structures Neck: Neck: no JVD Resp: Auscultation: clear to auscultation bilaterally Cardio: Rate: regular rate Rhythm: regular rhythm GI: Inspection: non-distended GI Palp: Yes Soft to palpation Skin: General skin exam: normal color Extrem: General: normal to inspection Psych: Mental Status: mental status grossly normal Assessment and Plan Assessment and plan (1) Colon polyp: Code(s): K63.5 - Polyp of colon Status: Acute Assessment and Plan: colonoscopy
--- NOTE | 2025-09-16 07:48 | S_PTH ---
PATIENT: Jaci Garcia LOC: [facility]#:[id number] AGE/SX: 64/F ROOM: RE09/16/[address]: Francisco Shepard MD : 1960 BED: DIS: 09/16/2025 SPEC #: [id number] RECD: 09/16/25 09:05 STATUS: VIDAL KNUTSON #: [id number] JOEY: 09/16/25 07:[address]: Francisco Shepard DEPT: [facility] Surgical RECD BY: Sasha Montgomery ENTERED: 09/16/25 09:07 SP TYPE: Surgical OTHR DR: Starr Torres, EDUCATION PROGRAM MANAGER Tissues: A - Colon Polypectomy B - Colon Polypectomy Procedures: Hematoxylin and Eosin Stain Gross and Microscopic Level 4
--- NOTE | 2025-09-16 07:54 | SUR.OPER ---
1 transverse colon polyp not retrieved. Dr. Polanco aware. No new orders at this time.
[2025-09-16 07:55] VITALS: BP 108/67; PULSE 84; RESP 20; O2SAT 95
[2025-09-16 08:05] VITALS: BP 110/66; PULSE 77; RESP 20; O2SAT 96
[2025-09-16 08:15] VITALS: BP 108/64; PULSE 72; RESP 20; O2SAT 99
== END 2025-09-16 08:30 | disposition home or self-care (01) ==
PROVIDERS: Referring Provider Obstetrics & Gynecology Gynecology; Visit Provider Internal Medicine Gastroenterology
PROC: 0DJD8ZZ Inspection of Lower Intestinal Tract, Via Natural or Artificial Opening Endoscopic (ICD-10-PCS; CPT 45378; principal; 2025-09-16 07:30)
DX: Z12.11 Encounter for screening for malignant neoplasm of colon (principal); D12.2 Benign neoplasm of ascending colon; D12.3 Benign neoplasm of transverse colon; K63.5 Polyp of colon; K64.8 Other hemorrhoids; K64.4 Residual hemorrhoidal skin tags; E78.00 Pure hypercholesterolemia, unspecified; F41.9 Anxiety disorder, unspecified; R06.83 Snoring; E66.9 Obesity, unspecified; Z68.34 Body mass index [BMI] 34.0-34.9, adult; Z98.890 Other specified postprocedural states
CPT/HCPCS: 45385; 88305; J2003; J2704; J7120